=== PATIENT | male | born 1955 | race Caucasian/White ===

== ENCOUNTER 2020-01-18 | Emergency (ER) | payer MEDICARE ==
[2020-01-18] MEDS ORDERED: ATORVASTATIN CA40 MG PO (19:30)
[2020-01-18] MEDS ORDERED: CITALOPRAM40 MG PO (19:30)
[2020-01-18] MEDS ORDERED: LEVOTHYROXIN150 MC1 PO (19:31)
[2020-01-18] MEDS ORDERED: HYDROCODONE BIT1 TA7 PO (19:32)
[2020-01-18] MEDS ORDERED: METFORMIN HCL500 M1 PO (19:33)
[2020-01-18] MEDS ORDERED: ASPIRIN CHEWABL81 MG PO (19:33)
[2020-01-18 20:09] LABS: HEMATOCRIT 45.8 % (39.0-50.0); HEMOGLOBIN 14.4 g/dl (14.0-18.0); IMMATURE GRANULOCYTES 0.2 % (0.0-5.0); MEAN CELL VOLUME 81.3 fL CALC (80.0-100.0); MEAN CORPUSCULAR HGB 25.6 pG CALC (26.0-32.0); MEAN CORPUSCULAR HGB CONC 31.4 g/dL CAL (32.0-36.0); NEUT# 6.19 thou/uL (1.82-7.42); RED BLOOD COUNT 5.63 mill/uL (4.70-6.10); RED CELL DISTRI WIDTH 15.9 % (11.5-15.5)
[2020-01-18 20:26] LABS: ALKALINE PHOSPHATASE 103 u/l (38-126); ANION GAP 15 (6-22 (CALC)); BILIRUBIN, TOTAL 0.4 mg/dL (0.0-1.4); BUN 14 mg/dL (8-23); BUN/CREATININE RATIO 18 (12-20 (CALC)); CARBON DIOXIDE 23 mmol/l (22-30); CHLORIDE 103 mmol/l (95-108); CREATININE 0.8 mg/dL (0.7-1.3); GFR > 60 ML/MIN (>=60 (CALC)); GFR FOR AFR.AMER. > 60 ML/MIN (>=60 (CALC)); POTASSIUM 4.4 mmol/l (3.5-5.1); SGOT/AST 29 u/l (19-48); SODIUM 137 mmol/l (137-146); TOTAL PROTEIN 7.6 g/dL (6.3-8.2)
[2020-01-18 20:38] LABS: MYOGLOBIN 51 ng/mL (0 - 121)
[2020-01-18] MEDS ORDERED: PREDNISONE50 MG PO (22:23)
--- NOTE | 2020-01-21 13:50 | NUR ---
Notified patient of Covid results (negative). Advised patient to follow up with PCP or return to the ED for urgent needs. Advised patient to continue with Covid prevention practices. Patient verbalized understanding.
== END 2020-01-18 22:28 | disposition home or self-care (01) ==
PROVIDERS: Family Medicine
DX: J40 Bronchitis, not specified as acute or chronic (principal); J98.01 Acute bronchospasm; I10 Essential (primary) hypertension; Z20.828 Contact with and (suspected) exposure to other viral communicable diseases; J20.9 Acute bronchitis, unspecified